=== PATIENT | male | born 1965 | race Caucasian/White ===

== ENCOUNTER 2018-06-18 12:01 | Emergency (ER) | payer OTHER ==
[~2018-06-18] VITALS: Ht 188 cm; Wt 110.0 kg
[2018-06-18 12:03] VITALS: TEMP 37.1; Ht 188 cm; Wt 110.0 kg
--- NOTE | 2018-06-18 12:50 | DIAGNOSTIC IMAGING REPORT ---
L KNEE 3 VIEWS CLINICAL HISTORY: Left knee pain status post trauma COMPARISON: None. DISCUSSION: There is a suprapatellar joint effusion. There is a nondepressed lateral tibial plateau fracture. There is a subtle calcific density lateral to the lateral femoral condyle. A lateral collateral ligament avulsion cannot be excluded with certainty IMPRESSION: 1. Nondepressed lateral tibial plateau fracture 2. Joint effusion Electronically signed by: Caleb Sanders M.D. 06/18/2018 12:49 PM Dictated Date/Time: 06/18/2018 12:47 PM
--- NOTE | 2018-06-18 12:51 | DIAGNOSTIC IMAGING REPORT ---
L TIBIA/FIBULA 2 VIEWS ROUTINE CLINICAL HISTORY: Left lower leg pain status post trauma COMPARISON: None. DISCUSSION: There is a lateral tibial plateau fracture. There is a joint effusion the level the knee. No additional fractures are visualized. IMPRESSION: Lateral tibial plateau fracture with minimal depression. Joint effusion at the level the knee. Electronically signed by: Caleb Sanders M.D. 06/18/2018 12:50 PM Dictated Date/Time: 06/18/2018 12:49 PM
[2018-06-18] MEDS ORDERED: OXYC-737 PO (13:00)
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
[2018-06-18 14:04] VITALS: BP 168/117; PULSE 98; O2SAT 97
== END 2018-06-18 14:05 | disposition home or self-care (01) ==
LOC: C.EDB 12:03 → C.EDD 14:05
DX: S80.212A Abrasion, left knee, initial encounter (principal); S82.125A Nondisplaced fracture of lateral condyle of left tibia, initial encounter for closed fracture; W17.2XXA Fall into hole, initial encounter

== ENCOUNTER 2018-07-12 17:39 | Emergency (ER) | payer SELFPAY ==
[~2018-07-12] VITALS: Ht 188 cm; Wt 108.9 kg
[~2018-07-12 17:39] MED LIST: OXYC-737 PO
[2018-07-12 17:48] VITALS: TEMP 36.4; Ht 188 cm; Wt 108.9 kg
[2018-07-12] MEDS ORDERED: ACETAMINOPHEN 500 MG TAB PO STA (17:57)
[2018-07-12] MEDS ORDERED: OXYC-90 PO (19:45)
[2018-07-12] MEDS ORDERED: OXYCODONE IR HOME PACK PO ONE (19:45)
[2018-07-12] MEDS ORDERED: BCTROWC EXT (19:48)
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
[2018-07-12 19:59] VITALS: BP 180/105; PULSE 100; O2SAT 100
== END 2018-07-12 20:02 | disposition left against medical advice (07) ==
LOC: C.EDB 17:40 → C.EDD 20:02
DX: T22.10XA Burn of first degree of shoulder and upper limb, except wrist and hand, unspecified site, initial encounter (principal); T21.11XA Burn of first degree of chest wall, initial encounter; T31.20 Burns involving 20-29% of body surface with 0% to 9% third degree burns; X15.8XXA Contact with other hot household appliances, initial encounter; R03.0 Elevated blood-pressure reading, without diagnosis of hypertension; F17.200 Nicotine dependence, unspecified, uncomplicated